=== PATIENT | female | born 1930 | race Caucasian/White ===

== ENCOUNTER 2016-09-18 18:53 | Emergency (ER) | payer OTHER, MEDICARE ==
[~2016-09-18] VITALS: Ht 167.6 cm; Wt 68.0 kg
[2016-09-18 19:23] VITALS: BP_SYST 150
[2016-09-18] MEDS ORDERED: LIDOCAINE 1% 10 MG/ML, 20 ML MDV INJ ONE (20:15)
[2016-09-18 21:30] VITALS: BP_SYST 136
== END 2016-09-18 21:30 | disposition home or self-care (01) ==
LOC: SED 18:53
DX: L02.411 Cutaneous abscess of right axilla (principal)
CPT/HCPCS: 10060; 99283; J2001